=== PATIENT | female | born 1955 | race Caucasian/White ===

== ENCOUNTER 2016-11-25 18:35 | Emergency (ER) | payer OTHER ==
--- NOTE | 2016-11-25 18:48 | EDPHY ---
H & P Stated Complaint: hypertension--feels nervous-denies pain or other symtoms HPI/ROS: HPI CHIEF COMPLAINT: Anxiety, hypertension HISTORY OF PRESENT ILLNESS: This patient very pleasant 61-year-old female significant past medical history for autosomal dominant polycystic kidney disease, however with normal creatinine, followed by Dr. Kruse once a year. Presents to the emergency room as she noticed that her blood pressure was elevated today. She tells me that she takes her blood pressure daily for her kidney doctor. She keep a log she tells me she usually runs blood pressure 118 over 60s. Heart rate in the 50s 60s. Patient tells me that today she noticed her blood pressures in the 140 systolic she then waited 30 minutes took it again a she knows she was in the 160s she then waited a few more minutes and took it again and noticed it was in the 190s. She became acutely anxious after seeing elevated blood pressure each time. She denies chest pain, shortness of breath, recent illness, headache, nausea, vomiting. She has no real complaints she does tell me that she feels anxious. No headache. No numbness or tingling no weakness. She has never had elevated blood pressure this high before. patient tells me that she has been under lot of stress recently with switching of her job, moving her elderly mother, and a recent in the family. 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 Exam Constitutional appears well nontoxic triage nursing summary reviewed, vital signs reviewed, awake/alert. ( vital sign hypertensive) Eyes normal conjunctivae and sclera, EOMI, PERRLA. HENT normal inspection, atraumatic, moist mucus membranes, no epistaxis, neck supple/ no meningismus, no raccoon eyes. Respiratory clear to auscultation bilaterally, normal breath sounds, no respiratory distress, no wheezing. Cardiovascular rate normal, regular rhythm, no murmur, no edema, distal pulses normal. Gastrointestinal soft, non-tender, no rebound, no guarding, normal bowel sounds, no distension, no pulsatile mass. Genitourinary no CVA tenderness. Musculoskeletal no midline vertebral tenderness, full range of motion, no calf swelling, no tenderness of extremities, no meningismus, good pulses, neurovascularly intact. Skin pink, warm, & dry, no rash, skin atraumatic. Neurologic awake, alert and oriented x 3, AAOx3, moves all 4 extremities equally, motor intact, sensory intact, CN II-XII intact, normal cerebellar, normal vision, normal speech. Psychiatric normal mood/affect. Heme/Lymph/Immune no lymphadenopathy. Differential Diagnosis: includes but is not limited to in a particular order acute anxiety, renal failure, hypertensive urgency, electrolyte abnormality Medical Decision Making: This patient had an EKG should be placed on full hardware installer will obtain blood pressure here. She had an IV established, check blood work, troponin, patient will have urinalysis check kidney function, she will be given IV Ativan 0.5 mg to see if this improves her anxiety and blood pressure. Re-evaluation: EKG interpretation by me on record in [employer] system. Impression time of EKG is 1919, this is sinus rhythm rate of 52 I do not appreciate acute ischemic changes specifically is no ST elevation, ST depression or significant T-wave abnormalities or prolonged intervals. Unremarkable EKG. 2013: re-examination at this time patient's blood pressure is 150 systolic. She feels much improved after IV Ativan 1 mg. She is resting comfortably no complaints specifically no chest pain or shortness of breath. Blood work has been reviewed negative troponin, nonischemic EKG, creatinine is normal. Urinalysis shows no significant abnormality. She feels comfortable going home. Limited supply for Ativan she understands to maintain a very close blood pressure log if she gets extremely high readings are has chest pain shortness of breath or severe headache return to the emergency room. She understands keep a blood pressure log follow up with the primary care doctor. It is important and imperative that she maintains good blood pressure log and normal blood pressure as she does have autosomal dominant polycystic kidney disease. She understands. 2031: updated patient comfortable going home. No chest pain no shortness of breath no headache. Blood pressure is improved. Limited prescription for Ativan. Source: Patient - Personal History Current Tetanus/Diphtheria Vaccine: Unsure Current Tetanus Diphtheria and Acellular Pertussis (TDAP): Unsure - Medical/Surgical History Hx Asthma: No Hx Chronic Respiratory Disease: No Hx Diabetes: No Hx Cardiac Disease: No Hx Renal Disease: No Hx Cirrhosis: No Hx Alcoholism: No Hx HIV/AIDS: No Hx Splenectomy or Spleen Trauma: No Other PMH: peptic ulcers. CKD - Social History Smoking Status: Never smoked Constitutional: Initial Vital Signs Temperature (C) 36.4 C 11/25/16 18:38 Heart Rate 61 11/25/16 18:38 Respiratory Rate 16 11/25/16 18:38 Blood Pressure 205/70 H 11/25/16 18:38 O2 Sat (%) 100 11/25/16 18:38 O2 Delivery Mode Room Air Allergies/Adverse Reactions: doxycycline Allergy (Verified 05/25/14 10:57) Penicillins Allergy (Verified 05/25/14 10:57) Sulfa (Sulfonamide Antibiotics) Allergy (Verified 05/25/14 10:57) Home Medications: Medication Instructions Recorded Lorazepam [Ativan] 1 mg PO DAILY #10 tablet 11/25/16 Medical Decision Making - Data Points Laboratory Results: Laboratory Results 11/25/16 19:10 11/25/16 19:10 11/25/16 11/25/16 11/25/16 19:10 19:10 19:10 WBC 8.51 10^3/uL 10^3/uL (3.80-9.50) RBC 3.96 10^6/uL L 10^6/uL (4.18-5.33) Hgb 12.5 g/dL L g/dL (12.6-16.3) Hct 37.5 % L % (38.0-47.0) MCV 94.7 fL fL (81.5-99.8) MCH 31.6 pg pg (27.9-34.1) MCHC 33.3 g/dL g/dL (32.4-36.7) RDW 12.7 % % (11.5-15.2) Plt Count 283 10^3/uL 10^3/uL (150-400) MPV 11.0 fL fL (8.7-11.7) Neut % (Auto) 57.6 % % (39.3-74.2) Lymph % (Auto) 32.5 % % (15.0-45.0) [place] % (Auto) 8.3 % % (4.5-13.0) Eos % (Auto) 0.7 % % (0.6-7.6) Baso % (Auto) 0.8 % % (0.3-1.7) Nucleat RBC Rel Count 0.0 % % (0.0-0.2) Absolute Neuts (auto) 4.89 10^3/uL 10^3/uL (1.70-6.50) Absolute Lymphs (auto) 2.77 10^3/uL 10^3/uL (1.00-3.00) Absolute Monos (auto) 0.71 10^3/uL 10^3/uL (0.30-0.80) Absolute Eos (auto) 0.06 10^3/uL 10^3/uL (0.03-0.40) Absolute Basos (auto) 0.07 10^3/uL 10^3/uL (0.02-0.10) Absolute Nucleated RBC 0.00 10^3/uL 10^3/uL (0-0.01) Immature Gran % 0.1 % % (0.0-1.1) Immature Gran # 0.01 10^3/uL 10^3/uL (0.00-0.10) Sodium 138 mEq/L mEq/L (134-144) Potassium 3.9 mEq/L mEq/L (3.5-5.2) Chloride 101 mEq/L mEq/L (97-110) Carbon Dioxide 26 mEq/l mEq/l (22-31) Anion Gap 11 mEq/L mEq/L (8-16) BUN 18 mg/dL mg/dL (7-23) Creatinine 1.1 mg/dL H mg/dL (0.6-1.0) Estimated GFR 50 Glucose 87 mg/dL mg/dL (70-100) Calcium 10.1 mg/dL mg/dL (8.5-10.4) Magnesium 2.1 mg/dL mg/dL (1.6-2.3) Total Bilirubin 0.7 mg/dL mg/dL (0.1-1.4) Conjugated Bilirubin 0.4 mg/dL mg/dL (0.0-0.5) Unconjugated Bilirubin 0.3 mg/dL mg/dL (0.0-1.1) AST 34 IU/L IU/L (14-46) ALT 38 IU/L IU/L (9-52) Alkaline Phosphatase 90 IU/L IU/L (38-126) Creatine Kinase 111 IU/L IU/L (0-156) CK-MB (CK-2) Fraction 2.52 ng/mL ng/mL (0-3.19) Troponin I < 0.012 ng/mL ng/mL (0-0.034) NT-Pro-B Natriuret Pep 381 pg/mL H pg/mL (0-125) Total Protein 8.0 g/dL g/dL (6.3-8.2) Albumin 4.8 g/dL g/dL (3.5-5.0) Lipase 184.0 IU/L IU/L (23-300) Urine Color PALE YELLOW Urine Appearance CLEAR Urine pH 8.0 H (5.0-7.5) Ur Specific [place] 1.002 (1.002-1.030) Urine Protein NEGATIVE (NEGATIVE) Urine Ketones NEGATIVE (NEGATIVE) Urine Blood 1+ H (NEGATIVE) Urine Nitrate NEGATIVE (NEGATIVE) Urine Bilirubin NEGATIVE (NEGATIVE) Urine Urobilinogen NEGATIVE EU EU (0.2-1.0) Ur Leukocyte Esterase NEGATIVE (NEGATIVE) Urine RBC 1-3 /hpf /hpf (0-3) Urine WBC 1-3 /hpf /hpf (0-3) Ur Epithelial Cells TRACE /lpf /lpf (NONE-1+) Ur Culture Indicated? NOT INDICATED (NI) Urine Glucose NEGATIVE (NEGATIVE) Medications Given: Discontinued Medications Lorazepam (Ativan Injection) 1 mg IVP EDNOW ONE Stop: 11/25/16 19:00 Last Admin: 11/25/16 19:16 Dose: 1 mg Departure - Departure Disposition: Home, Routine, Self-Care Clinical Impression: Anxiety Hypertension Qualifiers: Hypertension type: essential hypertension Qualified Code(s): I10 - Essential ( primary) hypertension Condition: Good Instructions: Hypertension (ED), Anxiety (ED) Additional Instructions: 1. monitor blood pressure closely. 2.If you get very high readings of developed chest pain shortness of breath or severe headache return to the emergency room. 3.Please keep a blood pressure log and follow up with her primary care doctor. 4.I have given you a limited supply of anxiety medication in case your are very anxious. Referrals: Mick Smallwood MD [Primary Care Provider] - As per Instructions Prescriptions: Lorazepam [Ativan] 1 mg PO DAILY #10 tablet
[2016-11-25] MEDS ORDERED: LORazepam 2 MG/ML INJ IVP ONE (18:59)
[2016-11-25 19:19] LABS: % IMMATURE GRANULYOCYTES 0.1 % (0.0-1.1); ABSOLUTE IMMATURE GRANULOCYTES 0.01 10^3/uL (0.00-0.10); ADD DIFF? NO; ADD MORPH? NO; ADD SCAN? NO; ATYPICAL LYMPHOCYTE FLAG 20 (0-99); FRAGMENT RBC FLAG 0 (0-99); HEMATOCRIT 37.5 % (38.0-47.0); HEMOGLOBIN 12.5 g/dL (12.6-16.3); LEFT SHIFT FLG 0 (0-99); LIPEMIA HEMOLYSIS FLAG 80 (0-99); MEAN CELL HEMOGLOBIN 31.6 pg (27.9-34.1); MEAN CELL HEMOGLOBIN CONCENTR. 33.3 g/dL (32.4-36.7); MEAN CELL VOLUME 94.7 fL (81.5-99.8); PLATELET CLUMPS FLAG 0 (0-99); PLATELET COUNT 283 10^3/uL (150-400); RED BLOOD CELL COUNT 3.96 10^6/uL (4.18-5.33); RED CELL DISTRIBUTION WIDTH 12.7 % (11.5-15.2)
--- NOTE | 2016-11-25 19:22 | CPEKG ---
Heart Rate: 52 RR Interval: 1154 P-R Interval: 140 QRSD Interval: 92 QT Interval: 448 QTC Interval: 417 P [place]: 70 QRS [place]: 52 T Wave [place]: 49 EKG Severity - NORMAL ECG - EKG Impression: SINUS RHYTHM Electronically Signed By: Ta Jin 25-Nov-2016 21:17:30
[2016-11-25 19:37] LABS: ALANINE AMINOTRANSFERASE 38 IU/L (9-52); ALBUMIN 4.8 g/dL (3.5-5.0); ALKALINE PHOSPHATASE 90 IU/L (38-126); ANION GAP 11 mEq/L (8-16); ASPARTATE AMINOTRANSFERASE 34 IU/L (14-46); BILIRUBIN,TOTAL 0.7 mg/dL (0.1-1.4); BILIRUBIN-CONJUGATED 0.4 mg/dL (0.0-0.5); BILIRUBIN-UNCONJUGATED 0.3 mg/dL (0.0-1.1); CALCIUM 10.1 mg/dL (8.5-10.4); CARBON DIOXIDE 26 mEq/l (22-31); CHLORIDE 101 mEq/L (97-110); CREATININE 1.1 mg/dL (0.6-1.0); GLOMERULAR FILTRATION RATE 50; GLUCOSE 87 mg/dL (70-100); MAGNESIUM 2.1 mg/dL (1.6-2.3); POTASSIUM 3.9 mEq/L (3.5-5.2); SODIUM 138 mEq/L (134-144)
[2016-11-25 19:49] LABS: CREATINE KINASE-MB FRACTION 2.52 ng/mL (0-3.19); TROPONIN I < 0.012 ng/mL (0-0.034)
[2016-11-25 20:00] LABS: COLOR PALE YELLOW; LEUKOCYTE ESTERASE,URINE NEGATIVE (NEGATIVE); NITRITE,URINE NEGATIVE (NEGATIVE)
[2016-11-25 20:51] VITALS: BP 164/70; PULSE 53; RESP 18; TEMP 97.9; O2SAT 97
== END 2016-11-25 20:52 | disposition home or self-care (01) ==
DX: F41.9 Anxiety disorder, unspecified (principal); I10 Essential (primary) hypertension
CPT/HCPCS: 96374

== ENCOUNTER → 2017-08-17 | Outpatient (CLI) | payer OTHER | LOC: BMCIMAGING 08:55 | PROVIDERS: ATTEND Internal Medicine | DX: R19.01 Right upper quadrant abdominal swelling, mass and lump (principal) ==

== ENCOUNTER 2017-08-27 13:08 | Emergency (ER) | payer OTHER ==
[2017-08-27 13:15] VITALS: RESP 18; TEMP 97.5
--- NOTE | 2017-08-27 13:17 | EDPHY ---
H & P Stated Complaint: acute generalized abd pain radiating into r leg Time Seen by Provider: 08/27/17 13:16 - Personal History Current Tetanus/Diphtheria Vaccine: Yes - Medical/Surgical History Hx Asthma: No Hx Chronic Respiratory Disease: No Hx Diabetes: No Hx Cardiac Disease: No Hx Renal Disease: No Hx Cirrhosis: No Hx Alcoholism: No Hx HIV/AIDS: No Hx Splenectomy or Spleen Trauma: No Other PMH: peptic ulcers. CKD - Social History Smoking Status: Never smoked Constitutional: Initial Vital Signs Temperature (C) 36.4 C 08/27/17 13:12 Heart Rate 77 08/27/17 13:12 Respiratory Rate 18 08/27/17 13:12 Blood Pressure 212/83 H 08/27/17 13:12 O2 Sat (%) 100 08/27/17 13:12 O2 Delivery Mode Room Air Allergies/Adverse Reactions: doxycycline Allergy (Verified 08/27/17 13:12) Penicillins Allergy (Verified 08/27/17 13:12) Sulfa (Sulfonamide Antibiotics) Allergy (Verified 08/27/17 13:12) Home Medications: Medication Instructions Recorded NK [No Known Home Meds] 08/27/17 Medical Decision Making - Diagnostics Imaging: Discussed imaging studies w/ call out operator Radiologist, I viewed and interpreted images myself ED Course/Re-evaluation: CHIEF COMPLAINT: Abdominal pain HISTORY OF PRESENT ILLNESS: The patient is a 62 y/o female with a history of cystic kidneys and chronic kidney disease complaining of acute onset RLQ pain radiating into her right upper thigh. She had an intense workout and subsequent sports massage this morning. On her drive home she developed sudden sharp pain in her abdomen that initially felt like gas. Her pain has not improved. She took a dose of simethicone on arrival here with no change in symptoms yet. She denies nausea, vomiting, constipation, diarrhea. No history of abdominal surgeries. REVIEW OF SYSTEMS: A 10 point review of systems was performed and is negative with the exception of the elements mentioned in the history of present illness. PHYSICAL EXAM: HR, BP, O2 Sat, RR. Temp noted General Appearance: Alert, well hydrated, appropriate, and non-toxic appearing. Head: Atraumatic without scalp tenderness or obvious injury Eyes: Pupils equal, round, reactive to light and accommodation, EOMI, no trauma , no injection. Nose: Atraumatic, no rhinorrhea, clear. Throat: Mucus membranes moist. Neck: Supple Respiratory: No retractions, no distress, no wheezes, and no accessory muscle use. Lungs are clear to auscultation bilaterally. Cardiovascular: Regular rate and rhythm, no murmurs, rubs, or gallops. Good capillary refill all extremities. Gastrointestinal: Abdomen is soft, mild diffuse tenderness, non-distended, no masses, no rebound, no guarding, no peritoneal signs. Musculoskeletal: Normal active ROM of all extremities, atraumatic. Neurological: Alert, appropriate, and interactive. The patient has non-focal cranial nerves, motor, sensory, and cerebellar exam. Skin: No rashes, good turgor, no nodules on palpation. Past medical history: Cystic kidneys and chronic kidney disease, peptic ulcers Past surgical history: No abdominal surgeries Family history: Noncontributory Social history: Lives in [place]. . Employed. DIAGNOSTICS/PROCEDURES/CRITICAL CARE TIME: Abdominal CT: constipation, nothing acute DIFFERENTIAL DIAGNOSIS: The differential diagnosis for the patient's abdominal pain included but was not limited to ovarian cyst, pelvic inflammatory disease, ovarian torsion, urinary tract infection, ectopic , cholecystitis, and appendicitis. MEDICAL DECISION MAKING: This is a 62 y/o female who presents with a 1-hour history of sudden onset RLQ abdominal pain after a workout and massage this morning. She denies any other associated symptoms. She has mild diffuse tenderness on exam. Plan for IV, labs , and abdominal CT. She declines pain or nausea medication. Reassessed patient and discussed imaging and lab results. Her CT only shows constipation. Her labs are unremarkable. I've recommended standard constipation care and follow up instructions. Strict return precautions given. She is comfortable with plan for discharge. - Data Points Laboratory Results: Laboratory Results 08/27/17 13:25 08/27/17 13:25 08/27/17 08/27/17 13:25 13:25 WBC 8.31 10^3/uL 10^3/uL (3.80-9.50) RBC 4.00 10^6/uL L 10^6/uL (4.18-5.33) Hgb 12.5 g/dL L g/dL (12.6-16.3) Hct 36.7 % L % (38.0-47.0) MCV 91.8 fL fL (81.5-99.8) MCH 31.3 pg pg (27.9-34.1) MCHC 34.1 g/dL g/dL (32.4-36.7) RDW 12.3 % % (11.5-15.2) Plt Count 256 10^3/uL 10^3/uL (150-400) MPV 10.5 fL fL (8.7-11.7) Neut % (Auto) 67.3 % % (39.3-74.2) Lymph % (Auto) 25.0 % % (15.0-45.0) [place] % (Auto) 5.7 % % (4.5-13.0) Eos % (Auto) 0.6 % % (0.6-7.6) Baso % (Auto) 1.0 % % (0.3-1.7) Nucleat RBC Rel Count 0.0 % % (0.0-0.2) Absolute Neuts (auto) 5.60 10^3/uL 10^3/uL (1.70-6.50) Absolute Lymphs (auto) 2.08 10^3/uL 10^3/uL (1.00-3.00) Absolute Monos (auto) 0.47 10^3/uL 10^3/uL (0.30-0.80) Absolute Eos (auto) 0.05 10^3/uL 10^3/uL (0.03-0.40) Absolute Basos (auto) 0.08 10^3/uL 10^3/uL (0.02-0.10) Absolute Nucleated RBC 0.00 10^3/uL 10^3/uL (0-0.01) Immature Gran % 0.4 % % (0.0-1.1) Immature Gran # 0.03 10^3/uL 10^3/uL (0.00-0.10) Sodium 139 mEq/L mEq/L (134-144) Potassium 3.8 mEq/L mEq/L (3.5-5.2) Chloride 103 mEq/L mEq/L (97-110) Carbon Dioxide 23 mEq/l mEq/l (22-31) Anion Gap 13 mEq/L mEq/L (8-16) BUN 20 mg/dL mg/dL (7-23) Creatinine 1.2 mg/dL H mg/dL (0.6-1.0) Estimated GFR 45 Glucose 94 mg/dL mg/dL (70-100) Calcium 10.1 mg/dL mg/dL (8.5-10.4) Total Bilirubin 0.5 mg/dL mg/dL (0.1-1.4) Conjugated Bilirubin 0.0 mg/dL mg/dL (0.0-0.5) Unconjugated Bilirubin 0.5 mg/dL mg/dL (0.0-1.1) AST 35 IU/L IU/L (14-46) ALT 41 IU/L IU/L (9-52) Alkaline Phosphatase 75 IU/L IU/L (38-126) Total Protein 7.1 g/dL g/dL (6.3-8.2) Albumin 4.6 g/dL g/dL (3.5-5.0) Lipase 154 IU/L IU/L (23-300) Medications Given: Discontinued Medications Sodium Chloride (Ns) 1,000 mls @ 0 mls/hr IV EDNOW ONE; Wide Open PRN Reason: Protocol Stop: 08/27/17 13:28 Last Admin: 08/27/17 13:37 Dose: 1,000 mls Departure - Departure Disposition: Home, Routine, Self-Care Clinical Impression: Abdominal pain Qualifiers: Abdominal location: right lower quadrant Qualified Code(s): R10.31 - Right lower quadrant pain Constipation Qualifiers: Constipation type: other constipation type Qualified Code(s): K59.09 - Other constipation Condition: Good Instructions: Constipation (ED), High Fiber Diet (ED), Abdominal Pain (ED) Additional Instructions: 1. Mix one bottle of Miralax with one gallon of Gatorade. Drink 1/2 of this solution over a one-hour period. Drink the second half in 15-minute increments over the second hour. Do this while at home near a toilet. 2. Follow up with your primary care provider for unimproved symptoms over the next few days. 3. Return to the ED for any worsening of condition. Referrals: Heaven Lange MD [Primary Care Provider] - As per Instructions Report Scribed for: Krishna Valiente Report Scribed by: Lolita Espinoza Date of Report: 08/27/17 Time of Report: 13:28
[2017-08-27] MEDS ORDERED: NS 1,000 ML IV ONE (13:27)
[2017-08-27 13:31] LABS: % IMMATURE GRANULYOCYTES 0.4 % (0.0-1.1); ABSOLUTE IMMATURE GRANULOCYTES 0.03 10^3/uL (0.00-0.10); ADD DIFF? NO; ADD MORPH? NO; ADD SCAN? NO; ATYPICAL LYMPHOCYTE FLAG 0 (0-99); FRAGMENT RBC FLAG 0 (0-99); HEMATOCRIT 36.7 % (38.0-47.0); HEMOGLOBIN 12.5 g/dL (12.6-16.3); LEFT SHIFT FLG 0 (0-99); LIPEMIA HEMOLYSIS FLAG 90 (0-99); MEAN CELL HEMOGLOBIN 31.3 pg (27.9-34.1); MEAN CELL HEMOGLOBIN CONCENTR. 34.1 g/dL (32.4-36.7); MEAN CELL VOLUME 91.8 fL (81.5-99.8); MEAN PLATELET VOLUME 10.5 fL (8.7-11.7); PLATELET CLUMPS FLAG 10 (0-99); PLATELET COUNT 256 10^3/uL (150-400); RED CELL DISTRIBUTION WIDTH 12.3 % (11.5-15.2)
[2017-08-27 13:51] LABS: ALANINE AMINOTRANSFERASE 41 IU/L (9-52); ALBUMIN 4.6 g/dL (3.5-5.0); ALKALINE PHOSPHATASE 75 IU/L (38-126); ANION GAP 13 mEq/L (8-16); ASPARTATE AMINOTRANSFERASE 35 IU/L (14-46); BILIRUBIN,TOTAL 0.5 mg/dL (0.1-1.4); BILIRUBIN-UNCONJUGATED 0.5 mg/dL (0.0-1.1); CALCIUM 10.1 mg/dL (8.5-10.4); CARBON DIOXIDE 23 mEq/l (22-31); CHLORIDE 103 mEq/L (97-110); CREATININE 1.2 mg/dL (0.6-1.0); GLOMERULAR FILTRATION RATE 45; GLUCOSE 94 mg/dL (70-100); POTASSIUM 3.8 mEq/L (3.5-5.2); SODIUM 139 mEq/L (134-144); TOTAL PROTEIN 7.1 g/dL (6.3-8.2)
[2017-08-27 14:23] VITALS: BP 166/74; PULSE 57; O2SAT 95
== END 2017-08-27 14:21 | disposition home or self-care (01) ==
DX: K59.09 Other constipation (principal); E86.9 Volume depletion, unspecified

== ENCOUNTER 2017-11-19 22:41 | Emergency (ER) | payer OTHER ==
[2017-11-19 22:48] VITALS: RESP 18
[2017-11-19] MEDS ORDERED: methylPREDNISolone SOD SUCC 125 MG/2 ML VIAL IVP ONE (23:26)
[2017-11-19] MEDS ORDERED: FAMOTIDINE 20 MG/2 ML SDV IVP ONE (23:26)
[2017-11-19 23:53] LABS: PLATELET COUNT 238 10^3/uL (150-400)
--- NOTE | 2017-11-19 23:54 | EDPHY ---
General - History Smoking Status: Former smoker Time Seen by Provider: 11/19/17 23:20 Narrative: CHIEF COMPLAINT: Rash HISTORY OF PRESENT ILLNESS: Patient presents with complaints of rash. This is a diffuse, raised rash that is very pruritic. The rash 1st erupted around 12:00 p.m. Today. However she felt some pruritus to multiple areas over the past 7-10 days. She has been taking Malarone for malaria prophylaxis. She was recently an return 10 days ago. She has had no difficulty breathing or swallowing. No swelling of the tongue. No drooling. She does report "my lower lip felt a little funny." She has an epinephrine pen due to anaphylactic reaction to other prescription medications but she did not use it. She took a Benadryl 25 mg at 9:00 p.m. With minimal improvement. No other associated complaints or modifying factors. REVIEW OF SYSTEMS: Ten systems reviewed and are negative unless otherwise noted in the HPI PCP: Dr. Heaven Lange SPECIALISTS: Dr. Kruse PAST MEDICAL HISTORY: polycystic kidney (ADPKD) PAST SURGICAL HISTORY: No recent surgeries SOCIAL HISTORY: Nonsmoker. Lives here independently with her spouse. Avid runner FAMILY HISTORY: Noncontributory EXAMINATION General Appearance: Alert, no distress. Well-developed well-nourished Head: normocephalic, atraumatic Eyes: Pupils equal and round, no conjunctival pallor or injection. No periorbital edema ENT, Mouth: Mucous membranes moist. The airway is widely patent. There are no lesions of the oral mucosa. The tongue is not swollen. Lips are not swollen. Neck: Normal inspection, supple, non-tender Respiratory: Lungs are clear to auscultation. No wheezing, rhonchi or crackles. No stridor Cardiovascular: Regular rate and rhythm. No murmur Gastrointestinal: Abdomen is soft and nontender Back: non-tender, no bony abnormalities Neurological: A&O, nonfocal, normal gait Skin: Warm and dry. Diffuse urticarial rash on all locations except the face. No target lesions or central clearing. No lesions of the palms of the hands and soles of feet. No evidence Nguyen-Raúl. Extremities: Nontender, no pedal edema Psychiatric: Mood and affect normal DIFFERENTIAL DIAGNOSES: Including but not limited to urticaria, hives, anaphylaxis, drug reaction, Nguyen Raúl's, erythema multiform MDM: 11:30 p.m. Diffuse urticaria with suspected drug reaction. This is a very pruritic, urticarial rash diffusely. No involvement of the face. There are no mucosal lesions or rash. No rash of the palms of the hands or soles of the feet. It is not painful. There is no desquamation or vesicles in any location. I do feel this is likely due to drug intolerance, Malarone. I have ordered IV Solu- Medrol, IV Benadryl and IV Pepcid. I do not appreciate any evidence of Nguyen- Raúl. I do not appreciate any angioedema or compromise of the airway. She is resting comfortably in no acute distress. She is not tachycardic but does have hypertension noted. I have addressed this specifically with her and she has no formal diagnosis, but her blood pressure is always high in the emergency department and medical settings. She has no symptoms from this pressure at this time. 12:00 a.m. Patient re-evaluated. She remains awake alert no acute distress. Airway remains widely patent. No swelling of the lips, tongue or periorbital skin. 12:40 a.m. Patient re-evaluated. She is feeling significantly better. No longer pruritic. The rash persists but is significantly improved by my inspection. She still has no mucosal lesions or rash. She has no involvement of the palms of the hands or soles of the feet. No desquamation or vesicles. I do feel that she is responding well with medications. We discussed discharge home with continuation of antihistamines and short burst of steroids as needed. We discussed close follow-up with primary care physician for resolution of symptoms as well as to discuss her elevated blood pressure that was discussed here. her blood pressure has significantly improved and she remains asymptomatic from this. I do feel she is stable for discharge home at this time. Both the patient and spouse are in agreement with this I have answered all their questions. She is discharged home stable condition. SUPERVISION: Patient was independently examined, but I discussed the case with my secondary supervising physician . Patient was evaluated and examined in conjunction with my secondary supervising physician as documented. We have both examined the patient. (Angel Cano) PHYSICIAN DOCUMENTATION: The patient was evaluated and managed by the Physician Customer Business Manager. My co- signature indicates that I have reviewed this chart and I agree with the findings and plan of care as documented. I am the secondary supervising physician. (Gypsy Chatterjee) - Objective Vital Signs: Initial Vital Signs Temperature (C) 36.4 C 11/19/17 22:42 Heart Rate 71 11/19/17 22:42 Respiratory Rate 18 11/19/17 22:42 Blood Pressure 212/68 H 11/19/17 22:42 O2 Sat (%) 97 11/19/17 22:42 O2 Delivery Mode Room Air Allergies/Adverse Reactions: doxycycline Allergy (Verified 11/19/17 22:48) Penicillins Allergy (Verified 11/19/17 22:48) Sulfa (Sulfonamide Antibiotics) Allergy (Verified 11/19/17 22:48) Home Medications: Medication Instructions Recorded predniSONE [Deltasone] 40 mg PO DAILY #4 tablet 11/20/17 Laboratory Results: Laboratory Results 11/19/17 23:38 11/19/17 23:38 11/19/17 11/19/17 23:38 23:38 WBC 7.35 10^3/uL 10^3/uL (3.80-9.50) RBC 3.96 10^6/uL L 10^6/uL (4.18-5.33) Hgb 12.2 g/dL L g/dL (12.6-16.3) Hct 36.8 % L % (38.0-47.0) MCV 92.9 fL fL (81.5-99.8) MCH 30.8 pg pg (27.9-34.1) MCHC 33.2 g/dL g/dL (32.4-36.7) RDW 12.4 % % (11.5-15.2) Plt Count 238 10^3/uL 10^3/uL (150-400) MPV 10.2 fL fL (8.7-11.7) Neut % (Auto) 67.7 % % (39.3-74.2) Lymph % (Auto) 23.9 % % (15.0-45.0) [place] % (Auto) 6.1 % % (4.5-13.0) Eos % (Auto) 1.4 % % (0.6-7.6) Baso % (Auto) 0.5 % % (0.3-1.7) Nucleat RBC Rel Count 0.0 % % (0.0-0.2) Absolute Neuts (auto) 4.97 10^3/uL 10^3/uL (1.70-6.50) Absolute Lymphs (auto) 1.76 10^3/uL 10^3/uL (1.00-3.00) Absolute Monos (auto) 0.45 10^3/uL 10^3/uL (0.30-0.80) Absolute Eos (auto) 0.10 10^3/uL 10^3/uL (0.03-0.40) Absolute Basos (auto) 0.04 10^3/uL 10^3/uL (0.02-0.10) Absolute Nucleated RBC 0.00 10^3/uL 10^3/uL (0-0.01) Immature Gran % 0.4 % % (0.0-1.1) Immature Gran # 0.03 10^3/uL 10^3/uL (0.00-0.10) Sodium 142 mEq/L mEq/L (135-145) Potassium 3.7 mEq/L mEq/L (3.5-5.2) Chloride 106 mEq/L mEq/L (97-110) Carbon Dioxide 24 mEq/l mEq/l (22-31) Anion Gap 12 mEq/L mEq/L (8-16) BUN 19 mg/dL mg/dL (7-23) Creatinine 1.2 mg/dL H mg/dL (0.6-1.0) Estimated GFR 45 Glucose 85 mg/dL mg/dL (70-100) Calcium 9.6 mg/dL mg/dL (8.5-10.4) Total Bilirubin 0.4 mg/dL mg/dL (0.1-1.4) Conjugated Bilirubin 0.2 mg/dL mg/dL (0.0-0.5) Unconjugated Bilirubin 0.2 mg/dL mg/dL (0.0-1.1) AST 36 IU/L IU/L (14-46) ALT 37 IU/L IU/L (9-52) Alkaline Phosphatase 79 IU/L IU/L (38-126) Total Protein 7.3 g/dL g/dL (6.3-8.2) Albumin 4.5 g/dL g/dL (3.5-5.0) Medications Given: Discontinued Medications Diphenhydramine HCl (Benadryl Injection) 25 mg IVP EDNOW ONE Stop: 11/19/17 23:27 Last Admin: 11/19/17 23:33 Dose: 25 mg Famotidine (Pepcid) 20 mg IVP EDNOW ONE Stop: 11/19/17 23:27 Last Admin: 11/19/17 23:34 Dose: 20 mg Methylprednisolone Sodium Succinate (Solu-Medrol) 125 mg IVP EDNOW ONE Stop: 11/19/17 23:27 Last Admin: 11/19/17 23:33 Dose: 125 mg Departure - Departure Disposition: Home, Routine, Self-Care Clinical Impression: Urticaria Allergic reaction Qualifiers: Encounter type: initial encounter Qualified Code(s): T78.40XA - Allergy, unspecified, initial encounter Condition: Good Instructions: Urticaria (ED), General Allergic Reaction (ED) Additional Instructions: 1. Prednisone as prescribed as needed if rash persists beyond Tuesday 2. Benadryl 25 mg every 6 hr as needed for up to 3 days and stop 3. Take 1 pill daily of 1 of the following: Claritin, Zyrtec or Karla over- the-counter. Stop taking after 3 days. 4. Take Pepcid adoi-wii-piovhqi, 20 mg twice daily or 40 mg once daily for 3 days and then stop 5. Contact her primary care physician Tuesday morning for outpatient follow-up 6. Return to emergency department immediately for any worsening of the rash, swelling of the lips, tongue or eyes. Referrals: Heaven Lange MD [Primary Care Provider] - As per Instructions Prescriptions: predniSONE [Deltasone] 40 mg PO DAILY #4 tablet
[2017-11-20 00:07] VITALS: O2SAT 99
[2017-11-20 00:53] VITALS: BP 187/65; PULSE 56; TEMP 98.1
== END 2017-11-20 01:09 | disposition home or self-care (01) ==
DX: L50.0 Allergic urticaria (principal); Z87.891 Personal history of nicotine dependence
CPT/HCPCS: 96374; J1200; J2930

== ENCOUNTER → 2018-03-02 | Outpatient (CLI) | payer OTHER | LOC: BMCIMAGING 08:46 | PROVIDERS: ATTEND Internal Medicine Gastroenterology | DX: K82.4 Cholesterolosis of gallbladder (principal); Q61.3 Polycystic kidney, unspecified; K76.89 Other specified diseases of liver ==